=== PATIENT | male | born 2000 | race Caucasian/White ===

== ENCOUNTER 2024-12-09 07:28 | Emergency (ER) | payer OTHER, SELFPAY ==
[2024-12-09 07:29] VITALS: BMI 22.0
[2024-12-09 07:42] VITALS: BP 116/74; PULSE 61; RESP 16; TEMP 36.7; O2SAT 99
--- NOTE | 2024-12-09 07:52 | XR_ITS ---
Examination: Thoracic spine 3 views Technique one AP lateral coned lateral upper dorsal spine 3 views Date and time: December 09, 2024 0805 hours INDICATIONS: Lifting injury to the upper back today, back pain. FINDINGS: Satisfactory alignment thoracic vertebral bodies No acute thoracic fracture No arthritic change IMPRESSION: No acute thoracic fracture
--- NOTE | 2024-12-09 07:52 | XR_ITS ---
Examination: Cervical spine 3 views TECHNIQUE: AP lateral coned AP odontoid cervical spine 3 views Date and time: December 09, 2024 0759 hours INDICATIONS: Lifting injury to the neck today, neck pain. FINDINGS: Satisfactory alignment cervical vertebral bodies. No cervical fracture. Intact odontoid IMPRESSION: No cervical fracture
--- NOTE | 2024-12-09 09:36 | EDNOTE_ITS ---
<Statement entered by Itzel Mancuso MD - 12/19/24 11:10> As co-signing physician, I was present and available for consult prn. I concur with the plan and care as documented by the midlevel provider. ED Back Injury Pain RME/HPI General Chief Complaint: Back Pain/Injury Stated Complaint: BACK PAIN Time Seen by Provider: 12/09/24 07:52 Arrival date/time: 12/09/24 07:28 24-year-old male with no significant medical problems presents to the Emergency Department for complaints of back pain patient reports pain worse with movement patient reports that he was exercising yesterday and developed pain in his back Limitations: no limitations Related Data Previous Rx's ?Medication ?Instructions ?Recorded cyclobenzaprine 10 mg tablet 10 mg PO TID PRN muscle s pasm 10 12/09/24 days #30 tab-caps ibuprofen 600 mg tablet 600 mg PO Q6H #30 tabs 12/09 Allergies Allergy/AdvReac Type Severity Reaction Status Date / Time No Known Allergies Allergy Verified 12/09/24 07:31 Review of Systems Review of Systems Systems Reviewed: All systems reviewed, normal except as documented Constitutional Constitutional: Reports system reviewed and no additional complaints, except as documented, Denies fever(s) and Denies headache(s) Eyes Eyes: Reports system reviewed and no additional complaints, except as documented and Denies blurry vision ENT Ears, Nose, Mouth, and Throat: Reports system reviewed and no additional complaints, except as documented, Denies headache(s), Denies nasal congestion and Denies nasal discharge Cardiovascular Cardiovascular: Reports system reviewed and no additional complaints, except as documented, Denies chest pain and Denies dyspnea Respiratory Respiratory: Reports system reviewed and no additional complaints, except as documented, Denies chest congestion, Denies cough and Denies dyspnea Gastrointestinal Gastrointestinal: Reports system reviewed and no additional complaints, except as documented and Denies abdominal pain Musculoskeletal Musculoskeletal: Reports system reviewed and no additional complaints, except as documented and Reports back pain Integumentary/Breasts Skin/Breast: Reports system reviewed and no additional complaints, except as documented and Denies rash Neurologic Neurologic: Reports system reviewed and no additional complaints, except as documented, Reports as per HPI and Denies headache(s) Past Medical History Social History SMOKING STATUS: Never smoker ED Exam General Limitations: Present no limitations General appearance: Present alert and in no apparent distress Head Head exam: Present atraumatic, normocephalic and normal inspection Eye Eye exam: Present normal appearance, PERRL and EOMI; Absent conjunctival injection ENT ENT exam: Present normal exam, normal oropharynx and mucous membranes moist Neck Neck exam: Present normal inspection, full ROM and trachea midline Chest Chest inspection: Present normal inspection and symmetric chest wall rise Respiratory Respiratory exam: Present normal lung sounds bilaterally; Absent respiratory distress Cardiovascular Cardiovascular exam: Present regular rate, normal rhythm and normal heart sounds Abdominal Exam Abdominal exam: Present soft and normal bowel sounds; Absent distention, tenderness, guarding, rebound or rigidity Extremities Exam Extremities exam: Present normal inspection and full ROM Back Exam Back exam: Present normal inspection, full ROM, tenderness, muscle spasm and paraspinal tenderness; Absent CVA tenderness (R) or CVA tenderness (L) Neurological Exam Neurological exam: Present alert, oriented X3 and CN II-XII intact Psychiatric Psychiatric exam: Present normal affect and normal mood Skin Skin exam: Present warm, dry, intact and normal color Course Quality Measures none Orders Category Date Time Status XR cervical spine 2-3V Stat Exams 12/09/24 07:52 Completed XR thoracic spine 3V Stat Exams 12/09/24 07:52 Completed Ketorolac Inj [Toradol Inj] Med 12/09/24 07:52 Discontinued 30 mg IM X1 ONE Vital Signs Vital signs: Vital Signs Temperature 98.1 F 12/09/24 07:42 Pulse Rate 61 12/09/24 07:42 Respiratory Rate 16 12/09/24 07:42 Blood Pressure 116/74 12/09/24 07:42 Pulse Oximetry (%) 99 12/09/24 07:42 Oxygen Delivery Method Room Air 12/09/24 07:42 O2 saturation 99% on room air within normal limits Back Pain / Injury MDM Narrative MDM Narrative:: 24-year-old male with no significant medical problems presents to the Emergency Department for complaints of back pain patient reports pain worse with movement patient reports that he was exercising yesterday and developed pain in his back 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 Patient has no numbness no tingling no saddle anesthesia no loss of bowel or bladder patient walks with steady gait does not appear to be in acute distress Patient discharged home in no distress to follow-up with primary care doctor in the next 24 to 48 hours and for any worsening symptoms to return to the ER immediately Patient data External records reviewed:: [facility] previous records Clinical information provided by:: patient Social determinants that could affect healthcare access:: none Patient has the following chronic illnesses:: none How is presenting disease/condition affected by chronic disease/condition?: no chronic disease Evaluation data The following diagnostics were reviewed and interpreted by me:: radiology exam(s) Lab and/or radiology exams considered but not ordered:: Radiology obtained Interpretation Summary: Reviewed by me Medications / Prescriptions Medications or Prescriptions considered but not ordered:: Given Medication administrations:: Medication Administration History Discontinued Medications Ketorolac Tromethamine (Ketorolac Inj 30 Mg/Ml Vial) 30 mg IM X1 ONE Stop: 12/09/24 07:53 Last Admin: 12/09/24 09:40 Dose: 30 mg Documented By: Given Consultations Consultation(s) initiated? (list below): No Diagnosis Differential diagnosis back pain/injury: lumbar radiculopathy, strain of lumbar region and thoracic back pain Most likely diagnosis given after review of the tests above:: Thoracic back pain, muscle spasm Admission Indicated Admission indicated?: not indicated Admission Request Was there a request for admission?: No Disposition Plan Disposition Plan: Discharge Discharge Attestation Discharge Attestation: The patient and all family members were given an opportunity to ask questions and understood the discharge instructions. Discharge instructions specifically effects, indications for sooner follow up or return to the emergency department, and the expected course of current diagnosis. Patient condition: Stable Discharge Plan Plan Patient Disposition: HOME (Self Care) Discharge Disposition comment: Stable Prescriptions/Referrals Prescriptions/Med Rec: New cyclobenzaprine 10 mg tablet 10 mg PO TID PRN (Reason: muscle spasm) 10 Days Qty: 30 0RF ibuprofen 600 mg tablet 600 mg PO Q6H Qty: 30 0RF Problem List Clinical Impression: Thoracic back pain, Work related injury Patient/Caregiver Discharge Instructions Education Materials: Back Safety: Bending Additional Instructions: Please follow up with your Workmen's Compensation doctor in the next 24-48hrs for any worsening symptoms return here immediately Print Language: Ethiopian Stand Alone Forms: [employer] Award Info., Patient Portal Info Letter PA/GEORGE Supervising Physician PA/GEORGE Supervising Physician: Dr. mancuso
[2024-12-09] MEDS: KETOROLAC INJ 30 MG/ML VIAL IM (09:40)
== END 2024-12-09 10:25 | disposition home or self-care (01) ==
PROVIDERS: Emergency Provider Emergency Medicine
DX: S29.9XXA Unspecified injury of thorax, initial encounter (principal); X58.XXXA Exposure to other specified factors, initial encounter; Y93.79 Activity, other specified sports and athletics; Y99.0 Civilian activity done for income or pay
CPT/HCPCS: 72040; 72072; 96372; 99283; J1885